=== PATIENT | male | born 2000 | race African-American/Black ===

== ENCOUNTER 2022-02-11 17:58 | Emergency (ER) | payer OTHER, SELFPAY ==
[2022-02-11 18:07] VITALS: BP 150/80; PULSE 69; RESP 18; TEMP 37.1; O2SAT 100
--- NOTE | 2022-02-11 18:30 | ED_ITS ---
HPI - Ear Problem General Chief complaint: Ear Stated complaint: Something is wrong with right ear, Headache Time Seen by Provider: 02/11/22 18:30 Source: patient Mode of arrival: Ambulatory History of Present Illness HPI Narrative: 21-year-old young man with a history of migraines presents with a week of right- sided headache that seems to be focused on his right year. He notes that he has had a mild cough but has not felt particularly ill otherwise. He also has a mild deformity to the distal portion of the left 5th metacarpal that notes occurred after he hit a wall. It has healed completely he has no pain, paresthesia, impaired range of motion or vascular compromise. He was seen at a urgent care clinic and told there was nothing wrong. His mom wanted him to have 2nd opinion. Denies fever, meningismus symptoms, abdominal pain, vomiting, diarrhea. He notes no drainage from the right ear Related Data Previous Rx's Medication Instructions Recorded amoxicillin 500 mg capsule 500 mg PO TID 5 days #15 caps 02/11/22 Allergies Allergy/AdvReac Type Severity Reaction Status Date / Time No Known Drug Allergies Allergy Verified 02/11/22 18:09 Review of Systems Review of Systems Narrative: Remainder of complete review of systems is otherwise unremarkable except for that included in the HPI. Exam Initial Vital Signs Initial Vital Signs: Vital Signs Temperature 98.8 F 02/11/22 18:07 Pulse Rate 69 02/11/22 18:07 Respiratory Rate 18 02/11/22 18:07 Blood Pressure 150/80 H 02/11/22 18:07 Pulse Oximetry 100 02/11/22 18:07 Oxygen Delivery Method 02/11/22 18:07 General: Alert appropriate in no acute distress HEENT: Left tympanic membrane is unremarkable. Right tympanic membrane is red, bulging, not ruptured. Canal is unremarkable. He has no tenderness over the mastoid process. No tenderness with movement of the external ear and no cervical adenopathy. Posterior pharynx is unremarkable with no evidence of inflammation or exudate Respiratory: Able to speak in full sentences, no obvious respiratory distress Skin: No obvious rashes, warm and dry Neurologic: Grossly intact no obvious asymmetries or abnormalities Psych: appropriate insight and affect, cooperative Extremity: Left hand with mild deformity distal left metacarpal consistent with a healed boxer's fracture Course Orders Ordered: Discontinued Medications Acetaminophen (Acetaminophen 325 Mg Tablet) 325 mg PO NOW ONE Stop: 02/11/22 18:45 Amoxicillin (Amoxicillin 250 Mg Capsule) 500 mg PO NOW ONE Stop: 02/11/22 18:45 Ibuprofen (Ibuprofen 400 Mg Tablet) 400 mg PO NOW ONE Stop: 02/11/22 18:45 Vital Signs Vital signs: Vital Signs - 8 hr 02/11/22 18:07 Temperature 98.8 F Pulse Rate 69 Respiratory Rate 18 Blood Pressure 150/80 H Pulse Oximetry 100 Oxygen Delivery Method Room Air Medical Decision Making [facility] Narrative Medical decision making narrative: 21-year-old man complains of a week of right ear pain and headache and clinical signs and symptoms of acute otitis media. Will treat with 7 days of amoxicillin. We discussed the fact that his hand likely is a healed boxer's fracture and I did offer an x-ray to confirm this however as it has healed completely he is not particularly concerned he is comfortable with simply explaining those suppositions to his mother. Discharge Plan Departure Patient Disposition: Home Clinical Impression: Otitis media Qualifiers: Otitis media type: suppurative Chronicity: acute Laterality: right Recurrence: non-recurrent Spontaneous tympanic membrane rupture: without spontaneous rupture Qualified Code(s): H66.001 - Acute suppurative otitis media without spontaneous rupture of ear drum, right ear Boxer's fracture Qualifiers: Encounter type: subsequent encounter Fracture type: closed Fracture healing: with routine healing Qualified Code(s): S62.339D - Displaced fracture of neck of unspecified metacarpal bone, subsequent encounter for fracture with routine healing Instructions: DI for Otitis Media (Middle Ear Infection)-Child Activity Restrictions/Additional Instructions: Thank you for coming in today I suspect that you have mild viral infection that is improving and now have a complicating bacterial ear infection. I am going to put you on amoxicillin for 5 days. Using 400 mg of ibuprofen (2 [id number] pills) and 1 Tylenol every 6 hours can be very helpful in controlling pain. You asked about your left hand. I suspect that you broke the bone on the edge of your hand when you hit the wall a number of months ago. At this point it has healed completely and there is nothing that you need to do. You may always have that slight deformity over your knuckle. Please reassure your mother that it is fine. If you find that you are getting worse or develop any new symptoms, please feel free to return to the emergency department for further evaluation. Prescriptions: New amoxicillin 500 mg capsule 500 mg PO TID 5 Days Qty: 15 0RF
[2022-02-11] MEDS: ACETAMINOPHEN 325 MG TABLET PO (18:50)
[2022-02-11] MEDS: AMOXICILLIN 250 MG CAPSULE 500 MG PO (18:50)
[2022-02-11] MEDS: IBUPROFEN 400 MG TABLET PO (18:50)
== END 2022-02-11 19:07 | disposition home or self-care (01) ==
PROVIDERS: Emergency Provider Emergency Medicine
DX: H66.001 Acute suppurative otitis media without spontaneous rupture of ear drum, right ear (principal); S62.339D Displaced fracture of neck of unspecified metacarpal bone, subsequent encounter for fracture with routine healing
CPT/HCPCS: 99283